=== PATIENT | female | born 1995 | race African-American/Black ===

== ENCOUNTER 2021-08-01 12:50 | Outpatient (CLI) | payer OTHER, MEDICAID, SELFPAY ==
--- NOTE | ~2021-08-01 | US_ITS ---
EXAMINATION: US OB <= 14 weeks fetus DATE: 08/01/2021 13:34 INDICATION: Encounter for supervision of normal first trimester TECHNIQUE: Real-time pelvic transabdominal and transvaginal ultrasound was performed. COMPARISON: None. FINDINGS: The uterus measures 14.0 x 7.0 x 7.3 cm. There is an intrauterine gestational sac. h eart motion is identified measuring 161 beats per minute (bpm) by M-mode Doppler. The crown rum p length measures 6.8 cm , which correlates with an estimated gestational age of 13 weeks and 1 day(s ) (+/-) 8 day(s). The right ovary measures 3.3 x 2.1 x 1.9 cm. The left ovary measures 2.4 x 1.4 x 1.7 cm. There is nor mal vascular flow in the ovaries. There is no free fluid in the pelvis. IMPRESSION: 1. Live intrauterine with an estimated gestational age of 13 weeks and 1 day(s) (+/-) 8 day (s) and an estimated delivery date of 02/05/2022. Reviewed, dictated and finalized at location B. IMPRESSION: 1. Live intrauterine with an estimated gestational age of 13 weeks an d 1 day(s) (+/-) 8 day(s) and an estimated delivery date of 02/05/2022.
== END 2021-08-01 12:51 | disposition home or self-care (01) ==
LOC: ANHIMG 13:02
PROVIDERS: PCP Physician Assistant; Visit Provider Physician Assistant
DX: Z34.91 Encounter for supervision of normal pregnancy, unspecified, first trimester (principal); Z3A.13 13 weeks gestation of pregnancy
CPT/HCPCS: 76801

== ENCOUNTER 2021-09-28 12:38 | Emergency (ER) | payer OTHER, MEDICAID, SELFPAY ==
--- NOTE | ~2021-09-28 | US_ITS ---
EXAMINATION: US OB limited DATE: 09/28/2021 15:55 INDICATION: Abdominal cramping during second trimester of TECHNIQUE: Real-time ultrasound of the pelvis was performed. The interpreting radiologist was not pre sent for the study. COMPARISON: None. FINDINGS: There is a single living fetus in vertex presentation. The placenta is anterior and not low-lying wi th caudal margin 2.7 cm from the internal cervical os. heart rate is 163 beats per minute (bpm) . The amniotic fluid volume is subjectively normal. IMPRESSION: 1. Single living fetus in vertex presentation with heart rate of 163 bpm. Reviewed, dictated and finalized at location A. MARKER IMPRESSION: 1. Single living fetus in vertex presentation with heart rate of 163 bpm .
[2021-09-28 12:50] VITALS: BP 129/88; PULSE 110; RESP 16; TEMP 36.7; O2SAT 100
[2021-09-28 14:45] VITALS: BP 125/81; PULSE 78; RESP 12; O2SAT 100
[2021-09-28 15:32] LABS: Add Urine Microscopic? YES; Appearance Urine Clear (Clear); Bacteria Urine Trace /hpf; Bilirubin Urine Negative (Negative); Blood Urine 1+ (Negative); Color Urine Yellow (Yellow); Glucose Urine UA Negative (Negative); Ketones Urine Trace mg/dL (Negative); Leukocyte Esterase Ur 1+ LEU/UL (Negative); Mucus Urine Rare /lpf; Nitrate Urine Negative (Negative); Protein Urine Negative (Negative); Specific Grav Ur 1.011 (1.001-1.035); Squamous Epithelial Cell Urine Many /hpf (Few); Urobilinogen Urine Negative mg/dL (<2.0); WBC Urine 0-3 /hpf
[2021-09-28] MEDS: ACETAMINOPHEN 500 MG TABLET 1000 MG PO (15:35)
[2021-09-28 15:36] VITALS: BP 124/90; PULSE 107; RESP 12; O2SAT 98
--- NOTE | 2021-09-28 16:39 | ED.GENADULT ---
HPI - General Adult General Chief complaint: Unspecified Stated complaint: ABD PAIN 21WEEKS PREG Time Seen by Provider: 09/28/21 14:20 Source: patient Mode of arrival: ambulatory Limitations: no limitations History of Present Illness HPI narrative: Patient is a 25-year-old female who is 21 weeks presenting with chief complaint of left-sided intermittent abdominal cramps along with headache and cough over the past 3 days. Patient reports that she was exposed to Covid. Patient denies vaginal bleeding or drainage. Patient denies contractions. Patient denies chest pain or shortness of breath. Patient reports that she has an appointment with her CIVIL MANAGER in [place] tomorrow morning. She reports that she is establishing care with his new provider on tomorrow. Related Data Allergies Allergy/AdvReac Type Severity Reaction Status Date / Time No Known Allergies Allergy Verified 09/28/21 15:08 Review of Systems Review of Systems: CONSTITUTIONAL: Denies fever, chills, or sweats. EYES: Denies visual changes, redness, or discharge. ENT: Denies rhinorrhea, congestion, sore throat, or otalgia. CARDIOVASCULAR: Denies chest pain, palpitations, or edema. RESPIRATORY: Reports cough denies dyspnea. GASTROINTESTINAL: Intermittent abdominal pain denies contractions, nausea, vomiting, or diarrhea. GENITOURINARY: Denies dysuria or hematuria. SKIN: Denies rash or itching. MUSCULOSKELETAL: Denies back pain, joint pain, or myalgia. NEUROLOGIC: Reports headache, denies numbness, dizziness, or weakness. PSYCHIATRIC: Denies anxiety or depression. Exam Narrative: GENERAL: Well-appearing, well-nourished, and in no acute distress. HEAD: Normocephalic, atraumatic. EYES: PERRLA and EOMI. CHEST: Clear to auscultation. No respiratory distress. No wheezes rales or rhonchi. Speech clear, not tachypnic. HEART: Regular rate and rhythm. ABDOMEN: Soft, No sign of active contractions, abdomen soft nontender, gravid, normal active bowel sounds. EXTREMITIES: Normal range of motion. No edema. SKIN: Warm, dry, no rash. NEURO: No focal deficits. Alert and oriented x3. PSYCH: Normal mood and affect. Course Vital Signs Vital signs: Vital Signs Temperature 98.1 F 09/28/21 12:50 Pulse Rate 110 H 09/28/21 12:50 Respiratory Rate 16 09/28/21 12:50 Blood Pressure 129/88 09/28/21 12:50 Pulse Oximetry 100 09/28/21 12:50 Temperature 98.1 F 09/28/21 12:50 Pulse Rate 100 09/28/21 17:11 Respiratory Rate 20 09/28/21 17:11 Blood Pressure 128/89 09/28/21 17:11 Pulse Oximetry 99 09/28/21 17:11 Medical Decision Making MDM Narrative Medical decision making narrative: Consult Dr. Howard CIVIL MANAGER on-call. Discussed with her patient presentation, complaints and concerns, lab work, urine analysis findings, questions regarding patient symptoms, ultrasound findings. She has not impressive urine analysis and does not recommend treatment for urinary tract infection with absence of urinary symptoms. She states that the patient should go home and take Tylenol and follow-up with her CIVIL MANAGER tomorrow for further evaluation. She states there is not any additional test that she recommend ordering in the emergency department for evaluation. Differential Diagnosis Differential Diagnosis: Premature contractions, UTI, appendicitis, kidney stone Vital Signs Vital Signs: Vital Signs Temperature 98.1 F 09/28/21 12:50 Pulse Rate 110 H 09/28/21 12:50 Respiratory Rate 16 09/28/21 12:50 Blood Pressure 129/88 09/28/21 12:50 Pulse Oximetry 100 09/28/21 12:50 Temperature 98.1 F 09/28/21 12:50 Pulse Rate 100 09/28/21 17:11 Respiratory Rate 20 09/28/21 17:11 Blood Pressure 128/89 09/28/21 17:11 Pulse Oximetry 99 09/28/21 17:11 Lab Data Labs: Lab Results 09/28/21 09/28/21 Range/Units 15:18 15:37 Urine Color Yellow (Yellow) Urine Appearance Clear (Clear) Urine pH 6.0 (5.0-9.0) Ur Specific [place]
[2021-09-28 17:11] VITALS: BP 128/89; PULSE 100; RESP 20; O2SAT 99
[2021-09-29 02:21] LABS: SARS-CoV-2 RNA PCR Positive
== END 2021-09-28 17:12 | disposition home or self-care (01) ==
PROVIDERS: Physician Assistant; Emergency Provider Emergency Medicine
DX: O98.512 Other viral diseases complicating pregnancy, second trimester (principal); U07.1 COVID-19; Z3A.21 21 weeks gestation of pregnancy
CPT/HCPCS: 76815; 81001; 87804; 99283; 99284; A9270; C9803; U0003; U0005

== ENCOUNTER 2022-10-20 10:35 | Emergency (ER) | payer BC, OTHER, SELFPAY ==
[2022-10-20 10:59] VITALS: PULSE 102; RESP 20; TEMP 37.4; O2SAT 97
--- NOTE | 2022-10-20 11:24 | ED.URI ---
HPI - URI/Sore Throat General Chief Complaint: Upper Respiratory Infection Stated Complaint: MULTI C/O Time Seen by Provider: 10/20/22 11:05 History of Present Illness HPI Narrative: Patient is a 26-year-old female here for evaluation with her daughter of upper respiratory infectious symptoms for the past 2 days. Patient reports sore throat, body aches, runny nose. Her daughter is experiencing similar symptoms, patient states that her daughter just started daycare. She is tolerating her secretions. Has not attempted any medicine for her pain. No cough, fevers, chills, nausea, vomiting, chest pain or shortness of breath. Related Data Allergies Allergy/AdvReac Type Severity Reaction Status Date / Time No Known Allergies Allergy Verified 09/28/21 15:08 Review of Systems Review of Systems: Gen.: Denies fevers or chills Eyes: Denies eye pain or visual change ENT: Reports congestion, sore throat Respiratory: Denies shortness of breath or cough CV: Denies chest pain or palpitations GI: Denies abdominal pain nausea, emesis or diarrhea denies burning, urgency, frequency or hematuria Musculoskeletal: Denies back pain or muscle pain Neuro: Denies numbness, tingling, weakness or focal weakness Skin: Denies rash Except as documented, all other systems reviewed and negative Exam Narrative: APPEARANCE: Well appearing, no pain in distress, well-nourished. Head: Normocephalic and atraumatic. EYES: PERRLA/EOMI, conjunctivae clear NOSE: No nasal drainage EARS: External ear normal in appearance THROAT: Erythema in the posterior oropharynx, tonsils are 2+ without exudates. Uvula is midline. NECK: Tender anterior cervical lymphadenopathy on the left. Supple. no masses. RESPIRATORY: Airway patent, respirations nonlabored. Clear to auscultation bilaterally, no rales, rhonchi, wheezing. CARDIOVASCULAR: Regular rate and rhythm without murmurs, rubs, or gallops. ABDOMINAL: Normoactive bowel sounds. Soft, nontender, nondistended. No rebound tenderness or guarding. MUSCULOSKELETAL: Extremities are warm and well-perfused. Moves all extremities well. No edema. NEURO: Normal speech. No focal neurologic deficits. SKIN: Skin is warm and dry. No rashes. PSYCHIATRIC: Normal affect/mood. Course Vital Signs Vital signs: Vital Signs Temperature 99.3 F 10/20/22 10:59 Pulse Rate 102 H 10/20/22 10:59 Respiratory Rate 20 10/20/22 10:59 Pulse Oximetry 97 10/20/22 10:59 Oxygen Delivery Room Air 10/20/22 10:59 Temperature 99.3 F 10/20/22 10:59 Pulse Rate 102 H 10/20/22 10:59 Respiratory Rate 20 10/20/22 10:59 Pulse Oximetry 97 10/20/22 10:59 Oxygen Delivery Room Air 10/20/22 11:40 MDM - URI/Sore Throat MDM Narrative Medical decision making narrative: 26-year-old female here for evaluation of upper respiratory infectious symptoms for the past several days, with evidence of tonsillar swelling in her posterior oropharynx and tender anterior cervical lymphadenopathy. Her strep test is positive which is consistent with her physical exam and history. She is tolerating her secretions and is nontoxic-appearing. COVID and flu are negative. She will be discharged home with antibiotics and to follow-up with her primary care doctor. Lab Data Labs: Lab Results 10/20/22 10/20/22 Range/Units 11:28 11:28 Influenza A (RT-PCR) Negative (Negative) Influenza B (RT-PCR) Negative (Negative) SARS-CoV-2 RNA (RT-PCR) Negative Group A Strep (PCR) Detected A (Negative) Discharge Plan Discharge Clinical Impression: Strep pharyngitis Patient Disposition: Home, Self-Care Condition: Stable Instructions: Antibiotic Form, Strep Throat (ED) Additional Instructions: Your strep throat test is positive today. This likely explains your symptoms. Please take the antibiotics as directed. Return to the ED if you have difficulty swallowing, your throat feels swollen, you have shortness of breath or o
[2022-10-20 12:02] LABS: Strep Group A RT-PCR DETECTED (Negative)
[2022-10-20 12:17] LABS: Influenza A QL RT-PCR Negative (Negative); Influenza B QL RT-PCR Negative (Negative); SARS-CoV-2 RNA PCR Negative
== END 2022-10-20 12:45 | disposition home or self-care (01) ==
PROVIDERS: Emergency Provider Physician Assistant
DX: J02.0 Streptococcal pharyngitis (principal); Z20.822 Contact with and (suspected) exposure to COVID-19
CPT/HCPCS: 87636; 87651; 99283

== ENCOUNTER 2025-09-25 20:50 | Emergency (ER) | payer OTHER, SELFPAY ==
--- OUTSIDE RECORDS SUMMARY | 2025-09-25 20:52 | XMS_ITS | Clinical Summary ---
[facility] Address [address] [place] [id number] Care Team Providers Care Tele Rn Name Role Phone No, Physician Primary Care Provider [phone] Allergies No known active allergies Medications cetirizine 10 mg capsule Take by mouth Active sertraline (ZOLOFT) 25 mg tablet Take 1 tablet (25 mg total) by mouth daily 30 tablet 5 04/04/2022 Active Hospital, Clinic, or Other Facility Administered Medication Ordered Dose Route Frequency Start Date End Date Status levonorgestreL (MIRENA) 20 mcg/24 hours (7 yrs) 52 mg IUDIndications:Preg cyndee Contraception intrauterine Continuous (implanted device) 02/21/2022 7 Active Active Problems Problem Noted Date Diagnosed Date Recurrent major depression 04/04/2022 S/P section 01/06/2022 Overview (01/07/2022): 01/06/22, POD #2 (KR) AFVSS Ambulating, voiding, dante reg diet Minimal lochia Pain well controlled hgb 9.6 - FeSO4 on discharge Rh negative - rhogam work up ordered Rubella unknown, IgG ordered. Will order MMR if applicable baby girl, Antonietta Continue routine PP care 01/07/22, PPD#3 (BD) - no changes - see above - routine PP care - anticipate home today Preeclampsia, severe, third trimester 01/02/2022 Overview (01/07/2022): (01/02/22) - BD ? BP's - severe range - treated with acute protocol ? - Symptoms:none ? - PIH labs - pending; known severe proteinuria ? - Mag started for seizure prophylaxis; strict q2hr I&O's ? - continue close monitoring ? - plan to move forward with delivery given GA - BMZ started, and NICU to be notified for delivery (01/03/22) - KG ? Treatment yesterday included IV Hydralazine 5mg, 10mg, IV Labetalol 20mg and 40mg. IV Magnesium started and PO Nifedipine 30mg every day ? BPs overnight 130-150s/60-90s, no severe range pressures ? Labs yesterday overall nml but significant proteinuria was previously documented on 24hr urine protein collected (12/30), 5,000mg/24hr (Plan for PP DVT prophylaxis ) ? Continue IV Magnesium through labor induction and 24hrs PP, titrate medications as needed, consider repeat labs if worsening signs or symptoms. ? Continue strict I&Os 9:00pm ? BPs stable through the day but now 2x severe range BPs, increase Nifedipine to 30mg BID ? Worsening Mag symptoms, Mag level 6.5 in the therapeutic range, continue at current rate and treat symptomatically (01/04/22) - KG ? BPs overnight stable until this morning when severe raneg BPs returned. IV Labetalol 20mg at 8:00am. ? Nifedipine increased to 60mg BID ? Rpt labs PRN, continue to monitor BPs and titrate medication as needed. 10:30am ? Disease process is worsening, requiring increasing amount of BP meds, slight rise in creatinine from 0.8 to 1.0, slight shortness of breath and chest xray shows possible pulmonary edema. Patient is still remote from delivery, still undergoing cervical ripening. At this time, I recommend proceeding with delivery via section. 4:00pm S/p LTCS due to development of pulmonary edema and disease progression IV magnesium discontinued at the time of pulmonary edema diagnosis prior to . IV Keppra 500mg BID started for seizure prophylaxis. IV Lasix not initially given due to anesthesia concern for hypotension with surgery. After surgery, she continued to require 2L O2 NC and occasionally increased to 3L. IV Lasix 40mg given. Continue to closely monitor spO2 and urine output. Continue with Nifedipine 60mg BID Plan for prophylactic Lovenox at 12hr PP 01/05/22, 0900, BD: BP's - well controlled - Continue Nifedipine 60mg BID Currently asymptomatic PIH labs - wnl; Cr - stable downtrending, continue daily labs IV magnesium discontinued at the time of pulmonary edema diagnosis prior to . IV Keppra 500mg BID started for seizure prophylaxis for 24hrs . Given pulmonary edema - at risk for recurrence in 72hrs - will start lasix course 20mg PO daily with 20 dangelo K for 5 day course. prophylactic Lovenox at 12hr PP 01/06/22, 0700 (KR) BPs normal to mild range Patient asymptomatic Labs yesterday normal, pending still today Exam normal today Continue daily labs, nifedipine 60mg BID XL 01/07/22, 0700 (BD) BPs normal to mild range - continue nifedipine 60mg BID XL and 5 day PO lasix course Patient asymptomatic PIH labs - wnl Exam normal today Genital herpes 10/27/2021 Rh negative, antepartum 10/27/2021 Obesity in 10/27/2021 Resolved Problems Problem Noted Date Diagnosed Date Resolved Date Encounter for induction of labor 01/02/2022 02/15/2022 Overview (01/02/2022): 01/02/22, BD: - Labor: unfavorable primip cervix - will start with cervidil - GBS: unknown - collected; will treat with PCN when reaches active labor - Pain Control: per maternal request, narcotics ok if delivery not anticipated within 4hrs - FWB: presentation confirmation by bedside US; Tracing - continuous EFM; EFW: 5.5# - Labs: PIH labs, T&S - Diet: CLD, as tolerated - Fluids: place IV, LR maintenance hydration Supervision of normal first , antepartum 10/27/2021 02/15/2022 Immunizations Immunization Administration Dates Next Due MMR 01/07/2022(Deferred: No longer n eeded - Pt rubella immune) Tdap 01/06/2022 Surgical History Surgery Date Site/Laterality Comments SECTION 01/14/2022 Medical History Medical History Date Comments Genital herpes Family History Medical History Relation Name Comments Breast cancer Mother Hypertension Mother Ovarian cancer Neg Hx Uterine cancer Neg Hx Relation Name Status Comments Father Alive Mother Alive breast cancer l ate 30s early 40s Social History Tobacco Use Types Packs/Day Years Used Date Smoking Tobacco: Never Smokeless Tobacco: Never [place] Depression Scale Answer Date Recorded [place] Depression Scale Total 3 02/15/2022 The thought of harming myself has occurred to me . 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 Gender Identity Not on file Sexual Orientation Not on file Obstetrics History Para Term AB IAB SAB Ectopic Multiple Livin g Live Births 1 1 1 0 1 1 Date Outcome GA Total Labor Labor/2nd/3rd Weight Sex Type Anes PTL Lori A1 A5 Name Clin 022 35w 3d 0h 01m 0h 01m 2.075 kg (4 lb 9.2 oz) F CS-LT ranv Spinal Y Livin g 6 8 JHONATAN EDMONDS,GI RLDIE Susi Doan MD Complications: Intolera nce,Pre eclampsia Delivery Location:[facility] ([facility]) Last Filed Vital Signs Vital Sign Reading Time Taken Comments Blood Pressure 128/84 04/04/2022 9:52 AM CDT Pulse 99 01/07/2022 1:33 PM CDT Temperature 36.9 C (98.5 F) 01/07/2022 1:33 PM CDT Respiratory Rate 16 01/07/2022 1:33 PM CDT Oxygen Saturation 99% 01/07/2022 1:33 PM CDT Inhaled Oxygen Concentration - - Weight 86.6 kg (191 lb) 04/04/2022 9:52 AM CDT Height 167.6 cm (5' 5.98) 04/04/2022 9:52 AM CD T Body Mass Index 30.84 04/04/2022 9:52 AM CDT Plan of Treatment Not on file Insurance [facility] [employer] [facility] Advance Directives For more information, please contact: [phone] * Full Code (Latest Code Status on File) Date Activated Date Inactivated Comments 01/04/2022 3:30 PM 01/07/2022 8:14 PM * Full Code Date Activated Date Inactivated Comments 01/02/2022 4:16 PM 01/04/2022 3:30 PM Full CPR in ca se of cardiopulmonary arrest Care Teams Tele Rn Relationship Specialty Start Date End Date No, Physician PCP - General 08/23/21
[2025-09-25 21:06] VITALS: BP 120/90; PULSE 109; RESP 20; TEMP 36.8; O2SAT 95
[2025-09-25] MEDS: FAMOTIDINE 20 MG/2 ML VIAL IV PUSH (21:47)
[2025-09-25 21:49] VITALS: O2SAT 95
--- OUTSIDE RECORDS SUMMARY | 2025-09-25 22:42 | XMS_ITS | Clinical Summary ---
Author Organization [facility] Address [address] [place] [phone] Care Team Providers Care Dials Inspector Name Role Phone No, Physician Primary Care Provider [phone] Allergies No known active allergies Medications cetirizine [...] Date Smoking Tobacco: Never Smokeless Tobacco: Never [place] Depression Scale Answer Date Recorded [place] Depression Scale Total 3 02/15/2022 The thought of harming myself has occurred to me . 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 Gender Identity Not on file Sexual Orientation [...] Doan MD Complications: Intolera nce,Pre eclampsia Delivery Location:[facility] ([facility]) Last [...] Plan of Treatment Not on file Insurance [facility] [employer] [facility] Advance Directives For more information, please contact: [phone] * Full Code (Latest Code Status on File) Date Activated Date Inactivated Comments 01/04/2022 3:30 PM 01/07/2022 8:14 PM * Full Code Date Activated Date Inactivated Comments 01/02/2022 4:16 PM 01/04/2022 3:30 PM Full CPR in ca se of cardiopulmonary arrest Care Teams Dials Inspector Relationship Specialty Start Date End Date No, Physician PCP - General 08/23/21
--- NOTE | 2025-09-25 23:05 | ED_ITS ---
HPI - Allergic Reaction General Chief complaint: Allergic Reaction Stated complaint: allergic reaction Time Seen by Provider: 09/25/25 22:32 Source: patient Mode of arrival: ambulatory Limitations: no limitations History of Present Illness HPI narrative: Patient presents the emergency department for an allergic reaction to bananas. Reports it was in a smoothie that she drink. Reports facial swelling and itching. Denies difficulty swallowing or trouble breathing. Related Data Allergies Allergy/AdvReac Type Severity Reaction Status Date / Time banana Allergy Mild Itching Verified 09/25/25 21:15 Review of Systems Review of Systems: All systems reviewed & are unremarkable except as noted in HPI and below Exam Narrative: GENERAL: Well-appearing, well-nourished, and in no acute distress. HEAD: Normocephalic, atraumatic. EYES: EOMI. Mild swelling about the eyelids ENT: Nares clear, no rhinorrhea or epistaxis. Mucous membranes moist. Oropharynx without tonsillar hypertrophy exudate or other lesions. NECK: Supple. No adenopathy or masses. CHEST: Clear to auscultation. No respiratory distress. No wheezes rales or rhonchi HEART: Regular rate and rhythm. No murmur heard. Normal peripheral pulses. EXTREMITIES: Normal range of motion. No edema. SKIN: Warm, dry, no rash. NEURO: No focal deficits. Alert and oriented x3. PSYCH: Normal mood and affect Course Vital Signs Vital signs: Vital Signs Temperature 98.2 F 09/25/25 21:06 Pulse Rate 109 H 09/25/25 21:06 Respiratory Rate 20 09/25/25 21:06 Blood Pressure 120/90 09/25/25 21:06 Pulse Oximetry 95 09/25/25 21:06 Oxygen Delivery Room Air 09/25/25 21:06 Temperature 98.2 F 09/25/25 23:23 Pulse Rate 68 09/25/25 23:23 Respiratory Rate 14 09/25/25 23:23 Blood Pressure 116/65 09/25/25 23:23 Pulse Oximetry 100 09/25/25 23:23 Oxygen Delivery Room Air 09/25/25 21:49 MDM MDM Narrative Medical decision making narrative: Patient presents to the emergency department for allergic reaction to bananas. Mild facial swelling noted about the eyelids. Patient given a Benadryl, Pepcid, Solu-Medrol with relief. Monitored to the ER for several hours with continued improvement in her symptoms. Instructed on continued use of antihistamines. Follow-up with PCP Differential Diagnosis Differential Diagnosis: allergic reaction, anaphylaxis Critical Care Time Critical Care Time Critical Care Time: No Discharge Plan Discharge Clinical Impression: Allergic reaction Qualifiers: Encounter type: initial encounter Qualified Code(s): T78.40XA - Allergy, unspecified, initial encounter Patient Disposition: Home Condition: Improved Instructions: General Allergic Reaction (ED) Additional Instructions: Return to the emergency department if you experience fever, difficulty swallowing, trouble breathing, swelling of your mouth or throat, or any other symptoms that are concerning to you Take a Pepcid and Zyrtec daily. Benadryl as needed for severe itching. Take steroid taper as prescribed Follow-up with primary care doctor Patient Language: Turkish Prescriptions: New methylprednisolone 4 mg tablets,dose pack See Rx Instructions .ROUTE .COMPLEX Qty: 21 0RF Rx Instructions: orally per package directions No Action penicillin V potassium 500 mg tablet 500 mg PO Q12H 10 Days Qty: 20 0RF Follow-up/Referrals: PHYSICIAN,CERTIFIED NUTRITIONIST [Primary Care Provider, Internal Medicine] Mikhail Burk MD [Physician, Family Practice]
[2025-09-25 23:23] VITALS: BP 116/65; PULSE 68; RESP 14; TEMP 36.8; O2SAT 100
[2025-09-26] MEDS: BELLADONNA ALK/PHENOB ELIX 10 ML, MAG HYDROX/ALUMINUM HYD/SIMETH 30 ML, LIDOCAINE 2% VI... PO (00:37)
[2025-09-26 01:13] VITALS: BP 127/64; PULSE 76; RESP 18; TEMP 36.8; O2SAT 98
== END 2025-09-26 01:15 | disposition home or self-care (01) ==
PROVIDERS: Emergency Provider Physician Assistant
DX: L29.9 Pruritus, unspecified (principal); R22.0 Localized swelling, mass and lump, head; T78.19XA Other adverse food reactions, not elsewhere classified, initial encounter
CPT/HCPCS: 96374; 96375; 99284; A9270; J1200; J2919